=== PATIENT | male | born 1975 | race Two or more races ===

== ENCOUNTER → 2024-07-11 | Outpatient (CLI) | payer OTHER, SELFPAY ==
[2024-07-11 08:31] LABS: Basophils % (Auto) 0 % (0-2.5); Eosinophils # (Auto) 0.2 Thou/mm3 (0.0-0.5); Eosinophils % (Auto) 2 % (0-10); Hematocrit 43.3 % (41.0-53.0); Hemoglobin 15.1 g/dL (13.5-16.0); Immature Granulocytes % (Auto) 0 % (0-0); Immature Granulocytes Auto 0.02 Thou/mm3 (0.00-0.00); Lymphocytes # (Auto) 2.5 Thou/mm3 (1.0-4.8); Lymphocytes % (Auto) 35 % (10-50); Mean Corpuscular HGB Conc 34.9 g/dl (31.0-37.0); Mean Corpuscular Hemoglobin 29.6 pg (25.0-35.0); Mean Corpuscular Volume 85 fL (80-100); Monocytes # (Auto) 0.6 Thou/mm3 (0.0-0.8); Monocytes % (Auto) 9 % (0-12); Neutrophils # (Auto) 3.9 Thou/mm3 (1.8-7.7); Neutrophils % (Auto) 53 % (37-80); Nucleated Red Blood Cell % 0 /100 WBC (0); Platelet Count 185 Thou/mm3 (140-440); RDW Standard Deviation 39.7 fL (35.1-43.9); White Blood Count 7.2 Thou/mm3 (3.8-10.6)
[2024-07-11 08:43] LABS: Glucose Estimated Average 126 mg/dL (80-131)
[2024-07-11 08:50] LABS: Alanine Aminotransferase 35 U/L (10-49); Albumin, Serum 4.8 gm/dL (3.5-5.0); Albumin/Globulin Ratio 2.3 (1.2-2.2); Alkaline Phosphatase 113 U/L (46-116); Anion Gap 8 (7-16); Aspartate Amino Transferase 23 U/L (0-34); BUN/Creatinine Ratio 23 Ratio (12-20); Bilirubin,Total 0.4 mg/dL (0.3-1.2); Blood Urea Nitrogen 25 mg/dL (9-23); Calcium 9.5 mg/dL (8.3-10.6); Calcium (Corrected) 9.5 mg/dL (8.5-10.1); Carbon Dioxide 27.4 mMol/L (20.0-31.0); Cardiac Risk Estimate 5.1 RATIO (4.0-6.7); Chloride 106 mMol/L (98-107); Cholesterol 167 mg/dL (132-200); Creatinine (Component) 1.1 mg/dL (0.6-1.3); Globulin 2.1 gm/dL (2.3-3.5); Glucose 115 mg/dL (74-106); HDL Cholesterol 33 mg/dL (40-60); LDL Cholesterol,Calculated 76 mg/dL (0-130); Osmolality,Calculated 286 (275-295); Potassium 3.9 mMol/L (3.4-5.1); Sodium 141 mMol/L (136-145); Total Protein 6.9 gm/dL (5.7-8.2); Triglycerides 291 mg/dL (30-150); eGFR > 60 See Note
[2024-07-11 09:01] LABS: Collection Type, Urine Clean Catch; Squamous Epithelial Cell,Urine 0 /hpf (0-5)
[2024-07-11 09:40] LABS: Bilirubin,Urine Negative (Negative); Blood,Urine 1+ (Negative); Clarity,Urine Clear (Clear/Hazy); Color,Urine Lt-Yellow (Lt Yel-Yel); Glucose, Urine Negative (Negative); Ketones,Urine Negative (Negative); Leukocyte Esterase,Urine Negative (Negative); Nitrite,Urine Negative (Negative); Protein,Urine Trace (Neg - Trace); RBC,Urine 8 /hpf (0-3); Urobilinogen,Urine Negative mg/dL (0.0-1.0); WBC,Urine 1 /hpf (0-5)
[2024-07-11 09:52] LABS: Creatinine MALB Rnd Ur 194 mg/dL (30-125); Microalbumin, Random Urine < 3 mg/L (0-300)
== END | disposition home or self-care (01) ==
PROVIDERS: PCP Family Medicine; Referring Provider Family Medicine; Visit Provider Family Medicine
DX: Z00.00 Encounter for general adult medical examination without abnormal findings (principal); E11.9 Type 2 diabetes mellitus without complications; E78.2 Mixed hyperlipidemia
CPT/HCPCS: 36415; 80053; 80061; 81001; 82043; 82570; 83036; 85025

== ENCOUNTER → 2024-07-20 | Outpatient (CLI) | payer OTHER, SELFPAY ==
--- NOTE | 2024-07-20 11:15 | XR_ITS ---
Examination: Abdomen sonogram, complete Date and time of exam: July 20, 2024 1118 hours INDICATIONS: Bilateral flank pain beginning 2 months ago. Technique: Multiple real-time grayscale transabdominal sonographic images of the abdomen have been obtained. Findings: Normal gallbladder Normal common bile duct 0.3 cm Pancreatic head 2.7 cm Aorta not enlarged Liver 19.0 cm fatty infiltration Normal hepatopedal portal venous flow Patent IVC Right kidney 12.6 x 6.6 x 7.2 cm cortex 1.7 cm Left kidney 11.7 x 6.2 x 5.7 cm cortex 1.5 cm Mild bilateral renal parenchymal scar formation Borderline splenomegaly 12.5 cm IMPRESSION: Normal gallbladder Normal common bile duct Moderate hepatomegaly fatty liver
== END | disposition home or self-care (01) ==
PROVIDERS: PCP Family Medicine; Referring Provider Family Medicine; Visit Provider Family Medicine
DX: K76.0 Fatty (change of) liver, not elsewhere classified (principal)
CPT/HCPCS: 76700

== ENCOUNTER 2024-09-03 07:30 | Day surgery (SDC) | payer OTHER, SELFPAY ==
[2024-08-31 13:46] VITALS: BMI 28.5
[2024-09-03] VITALS (14 sets, daily range): BP systolic 100–144; BP diastolic 60–118; PULSE 56–70; RESP 10–17; TEMP 36.4–36.7; O2SAT 95–100; BMI 28.6
[2024-09-03] MEDS: SODIUM CHLORIDE 0.9% 500 ML 500 ML 20 ML IV (09:18)
[2024-09-03] MEDS: DiphenhydrAMINE INJ 50 MG/ML VIAL 25 MG IV (09:25)
[2024-09-03] MEDS: ONDANSETRON INJ 2 MG/ML INJ 2 ML 4 MG IV (09:27)
[2024-09-03] MEDS: fentaNYL CIT INJ 50 mCg/ML AMP 2ML (ASD USE ONLY) IV (09:27)
[2024-09-03] MEDS: MIDAZOLAM INJ 1 MG/ML VIAL 2 ML (ASD USE ONLY) 2 MG IV (09:42)
[2024-09-03] MEDS: MEPERIDINE INJ 25 MG/ML VIAL (ASD USE ONLY) 50 MG IV (09:42)
--- NOTE | 2024-09-03 10:53 | SUR.PHASEII ---
1030 Pt more awake and alert. Denies pain, N/V or difficulty swallowing. Abd remains soft. Alfonzo Po fluids. 1045 Pt assessment unchanged. No complaints. Amb with steady gait. assisting with pt getting dressed. DC instructions given . Both state understanding. Pt meets dc criteria-to home.
== END 2024-09-03 10:45 | disposition home or self-care (01) ==
PROVIDERS: PCP Family Medicine; Referring Provider Specialist; Visit Provider Specialist
PROC: 0DBE8ZX Excision of Large Intestine, Via Natural or Artificial Opening Endoscopic, Diagnostic (ICD-10-PCS; CPT 45380; principal; 2024-09-03 08:30)
PROC: (CPT 43239; 2024-09-03 08:30)
DX: D12.3 Benign neoplasm of transverse colon (principal); D12.2 Benign neoplasm of ascending colon; K29.50 Unspecified chronic gastritis without bleeding; K31.89 Other diseases of stomach and duodenum; K64.8 Other hemorrhoids
CPT/HCPCS: 45385; 45380; A4649; J1200; J2175; J2250; J2405; J3010; J7040

== ENCOUNTER 2024-09-06 09:38 | Outpatient (RCR) | payer OTHER, SELFPAY ==
--- NOTE | 2024-09-06 10:00 | XR_ITS ---
Examination: CHELSEY, hepatobiliary radioisotope scan Gallbladder ejection fraction study. Date and time of exam: September 06, 2024 0941 hrs. Indications: Upper abdominal pain 5 months heartburn Technique: 6.1 mCi of 99M Hepatolite administered. Serial imaging then obtained from immediate through 60 minutes. 2.0 mcg selective catheter Kinevac administered for gallbladder ejection fraction study. Findings: Radioisotope activity within the liver is reasonably homogenous. Gallbladder, common bile duct small bowel activity noted Impression: Gallbladder activity Normal gallbladder ejection fraction, 75%
== END 2024-09-11 23:59 | disposition home or self-care (01) ==
LOC: SNUC 09:38
PROVIDERS: PCP Family Medicine; Referring Provider Specialist; Visit Provider Specialist
DX: R14.0 Abdominal distension (gaseous) (principal); R10.32 Left lower quadrant pain; R10.31 Right lower quadrant pain; K57.90 Diverticulosis of intestine, part unspecified, without perforation or abscess without bleeding
CPT/HCPCS: 78227; A9537; J2805

== ENCOUNTER → 2024-09-07 | Outpatient (CLI) | payer OTHER, SELFPAY ==
--- NOTE | 2024-09-07 13:30 | XR_ITS ---
Examination: CT abdomen with intravenous contrast CT pelvis with intravenous contrast 2-D coronal reconstructions 2-D sagittal reconstructions Date and time of exam:September 07, 2024 1406 hrs. Indications: Intermittent abdominal pain beginning 6 months ago. CTDI: vol (mGy) 18.2 DLP: (mGycm) 743 Technique: Multiple axial sections of the abdomen and pelvis have been obtained. 64 slice high-resolution scanner used. 3 mm axial sections have been obtained, post intravenous injection 60 cc [id number] 2-D sagittal, coronal reconstructions obtained. Low dose protocols were performed. One or more of the following dose reduction techniques were used; automated exposure control, adjustment of the mA and/or KV according to patient size, use of iterative reconstruction technique. Findings: Diffuse fatty infiltration throughout the liver Contracted gallbladder. Spleen not enlarged. No pancreatic or adrenal mass. No renal or ureteral calculi, no hydronephrosis Aorta normal size. Normal appendix Acute diverticulitis mid descending colon with air droplets in the wall and just outside the wall of the descending colon No peridiverticular abscess Urinary bladder intact Impression: Acute diverticulitis distal descending colon, no peridiverticular abscess
== END | disposition home or self-care (01) ==
LOC: CCTX 13:10
PROVIDERS: PCP Family Medicine; Referring Provider Specialist; Visit Provider Specialist
DX: K57.92 Diverticulitis of intestine, part unspecified, without perforation or abscess without bleeding (principal)
CPT/HCPCS: 74177; A4649; Q9967